=== PATIENT | female | born 1995 | race Caucasian/White ===

== ENCOUNTER 2020-08-21 18:29 | Emergency (ER) | payer MEDICAID ==
[~2020-08-21] VITALS: Ht 157.5 cm; Wt 59.0 kg
[2020-08-21 18:39] VITALS: BP 106/66
[2020-08-21] MEDS ORDERED: KETOROLAC 60MG/2ML VIAL IM ONE (19:15)
[2020-08-21] MEDS ORDERED: ACETAMINOPHEN 325MG TABLET PO ONE (19:15)
[2020-08-21 19:33] LABS: *BARBITURATES SCREEN URINE NEGATIVE (NEGATIVE); *BENZODIAZEPINES SCREEN URINE NEGATIVE (NEGATIVE); *COCAINE SCREEN URINE NEGATIVE (NEGATIVE); METHADONE URINE SCREEN NEGATIVE (NEGATIVE)
[2020-08-21 19:34] LABS: *AMPHETAMINES SCREEN URINE PRESUMTIVE POSITIVE (NEGATIVE); CANNABINOID URINE SCREEN NEGATIVE (NEGATIVE); OPIATES URINE SCREEN NEGATIVE (NEGATIVE); PHENCYCLIDINE URINE SCREEN NEGATIVE (NEGATIVE)
[2020-08-21] MEDS ORDERED: IBUP-2029 MT (19:58)
== END 2020-08-21 20:11 | disposition home or self-care (01) ==
LOC: ER 18:29
DX: S49.92XA Unspecified injury of left shoulder and upper arm, initial encounter (principal); V49.9XXA Car occupant (driver) (passenger) injured in unspecified traffic accident, initial encounter; Y93.89 Activity, other specified; Y92.89 Other specified places as the place of occurrence of the external cause; Y99.8 Other external cause status
CPT/HCPCS: 29105; 71045; 73030; 73080; 73090; 80305; 81025; 96372; 99284; J1885

== ENCOUNTER 2021-05-20 10:52 | Emergency (ER) | payer MEDICAID ==
[~2021-05-20 10:52] MED LIST: IBUP-2029 MT
== END 2021-05-20 11:33 | disposition left against medical advice (07) ==
LOC: ER 10:52
DX: Z53.21 Procedure and treatment not carried out due to patient leaving prior to being seen by health care provider (principal)